=== PATIENT | male | born 2000 | race Caucasian/White ===

== ENCOUNTER 2018-08-05 14:10 | Emergency (ER) | payer OTHER, SELFPAY ==
[2018-08-05 14:11] VITALS: BP 108/61; PULSE 107; RESP 16; TEMP 36.8; O2SAT 98; BMI 19.8
--- NOTE | 2018-08-05 14:49 | ED.VISSUMM ---
- ER Visit Summary Date of Service: 08/05/18 Chief Complaint: [] Rhinorrhea and cough History of Present Illness: The patient is a 17 M [] she has had rhinorrhea and cough occasional nausea he is able to drink Gatorade solid foods make her more nauseated, no fever no chest or abdominal pain eating and drinking liquids and soft foods more difficult to swallow food normal bowel bladder habits no past history no exposures Physical Examination: [] Unremarkable he is afebrile clinically looks well in no distress working with his phone General, no distress resting comfortably HEENT is generally unremarkable, minimal rhinorrhea no distress airways intact The neck is supple no adenopathy Cardiovascular, regular rate and rhythm Lungs, clear bilateral Abdomen, soft nontender Extremities, no clubbing cyanosis or edema Neurologic, awake alert answering questions appropriately moving all 4 extremities Test Results: [] Emergency Department Course and Treatment: [] He looks well he is drinking Gatorade which he brought with him, there is no acute abnormality I explained he looks has a URI with a runny nose and occasional cough he appears well-hydrated he has no head neck chest or abdominal abnormalities on physical exam except as above he is comfortable discharge home with Giancarlo to stay on liquid frothy diet felt his doctors return for change in symptoms Treatment Plan: [] Disposition: [] Home stable Impression: [] URI with cough This note was generated with [employer] dictation software. It may contain incorrect words, spelling, and punctuation that were not noted in review of the chart prior to signing ED Disposition - Plan for ED Patient: Referrals: Roman Castle MD [Primary Care Provider] -
--- NOTE | 2018-08-05 14:53 | ED.DEP ---
ED Disposition - Plan for ED Patient: Instructions: ED Upper Resp Infec No Abx Tx Prescriptions: Ondansetron [Zofran Odt] 4 mg PO Q8H PRN PRN #10 tab PRN Reason: Nausea Referrals: Roman Castle MD [Primary Care Provider] -
== END 2018-08-05 15:04 | disposition home or self-care (01) ==
PROVIDERS: Emergency Provider Emergency Medicine; Family Provider Pediatrics; PCP Pediatrics
DX: J06.9 Acute upper respiratory infection, unspecified (principal); R05 Cough
CPT/HCPCS: 99282

== ENCOUNTER 2021-02-07 12:13 | Emergency (ER) | payer MEDICARE, SELFPAY ==
[2021-02-07 12:14] VITALS: BP 129/90; PULSE 111; RESP 16; TEMP 36; O2SAT 99; BMI 23.6
--- NOTE | 2021-02-07 12:29 | EX.ED.DYSGE1 ---
HPI History of Present Illness Chief Complaint: General Illness Narrative Narrative: Patient presents with cough congestion loss of smell and some muscle aches for the past 3 days. He did get his first dose of Covid vaccine 2 weeks ago. He is complaining of subjective fevers this morning but no prior fevers. He has no shortness of breath. He is denying urinary symptoms neck pain or neck stiffness no headache. PFSH PFSH Home Medications cephalexin 500 mg PO Q6 #40 capsule 01/21/17 [Rx Last Taken Unknown] ondansetron 4 mg PO Q8H PRN PRN #10 tab 08/05/18 [Rx Last Taken Unknown] Allergy/AdvReac Type Severity Reaction Status Date / Time No Known Allergies Allergy Verified 02/07/21 12:16 Social History Smoking Status: Current every day smoker ROS ROS ED ROS Narrative Past medical history: Reviewed, noncontributory Medications: Reviewed Social history: Noncontributory Review of systems: All systems negative except as indicated General: No fever Eyes: No visual changes ENT: Upper airway congestion and rhinorrhea. Loss of smell some loss of taste Neck: No neck pain Cardiovascular: No chest pain Respiratory: No shortness of breath or cough Gastrointestinal: No abdominal pain, nausea vomiting or diarrhea Genitourinary: No dysuria Musculoskeletal: Some myalgias Skin: No rash Neurological: No memory loss, confusion or any focal weakness Psych: No recent behavioral changes Hematologic: No easy bleeding or easy bruising EXAM Physical Exam Narrative Exam Narrative: Physical exam General: Well nourished, Well developed, No Acute Distress Head: Normocephalic, Atraumatic Eyes: Conjunctiva not pale ENT: He has rhinorrhea and swollen nasal turbinates. He has some postnasal drip but no pharyngitis. Otherwise normal soft palate. Moist membranes without evidence of dehydration Neck: Supple, Nontender, No lymphadenopathy Cardiovascular: Slightly tachycardic. No murmur. Respiratory: No distress, CTA bilaterally Abdomen: Soft, Nontender, Nondistended Back: Nontender, Normal Inspection. Negative for: CVA tenderness Extremities: Nontender, No edema Skin: Normal color, No rash Neurological: Alert, Normal Strength, Normal Sensation Psychological: Normal affect Const Vital Signs: 02/07/21 12:14 Temperature 96.8 F L Temperature Source Temporal Pulse Rate 111 H Respiratory Rate 16 Blood Pressure 129/90 H Blood Pressure Mean 103 Pulse Ox 99 Oxygen Delivery Method Room Air MDM MDM MDM Narrative Medical decision making narrative: Patient appears well, I will test him for Covid otherwise he has a viral upper respiratory infection. I will write him off work for the next 2 days I did tell him it is longer if his Covid come back positive. Per hospital protocol we will text him the test results. Discharge Plan Triage Chief Complaint: General Illness ED Provider: Pedro Hurtado Dx/Rx/DC Orders Clinical Impression: Upper respiratory infection Instructions: ED URI, Viral, No Abx (Adult) Prescriptions: No Action cephalexin 500 MG capsule 500 mg PO Q6 Qty: 40 RF: 0 ondansetron 4 MG tablet 4 mg PO Q8H PRN PRN (Reason: Nausea) Qty: 10 RF: 0 Primary Care Provider: Roman Castle Referrals: Roman Castle MD [Primary Care Provider] - 2 Days Disposition Disposition: Home, Self Care
[2021-02-07 12:36] VITALS: BP 129/90; PULSE 111; RESP 16; TEMP 36; O2SAT 99
== END 2021-02-07 12:38 | disposition home or self-care (01) ==
LOC: ED 12:33
PROVIDERS: Emergency Provider Emergency Medicine; PCP Pediatrics
DX: U07.1 COVID-19 (principal); J06.9 Acute upper respiratory infection, unspecified; F17.200 Nicotine dependence, unspecified, uncomplicated
CPT/HCPCS: 87426; 99282

== ENCOUNTER 2022-06-07 23:58 | Emergency (ER) | payer BC, MEDICAID, SELFPAY ==
[2022-06-07 23:59] VITALS: BP 131/88; PULSE 61; RESP 16; TEMP 36.6; O2SAT 100; BMI 21.6
--- NOTE | 2022-06-08 00:13 | EX.ED.DYSGE1 ---
HPI History of Present Illness Chief Complaint: Cellulitis Informant: patient Onset/Context/Timing Onset: Weeks (1 week) Narrative Narrative: Patient presents secondary to infection in his right great toe. He had an ingrown toenail that he is already trimmed the nail back. He states he continues to have pain and drainage. Symptoms started about a week ago. No fever or chills. He is not diabetic. PFSH PFSH Medical History no medical history no medical history Home Medications cephalexin 500 mg capsule 500 mg PO Q6 ##40 01/21/17 [Rx Last Taken Unknown] ondansetron 4 mg disintegrating tablet 4 mg PO Q8H PRN PRN Nausea #10 tabs 08/05/18 [Rx Last Taken Unknown] cephalexin 500 mg capsule 500 mg PO Q6 #40 CAPSULES 06/08/22 [Rx Last Taken Unknown] sulfamethoxazole 800 mg-trimethoprim 160 mg tablet (Bactrim DS) 1 tab PO BID #20 tabs 06/08/22 [Rx Last Taken Unknown] Allergy/AdvReac Type Severity Reaction Status Date / Time No Known Allergies Allergy Verified 06/08/22 00:00 Social History Smoking Status: Current every day smoker tobacco type: cigarettes ROS ROS ED Constitutional Constitutional ED: Denies chills or fever(s) Eyes Eyes: Denies change in vision or discharge from eye(s) ENT ENT ED: Denies discharge from eye(s), rhinorrhea or sore throat Cardiovascular Cardiovascular: Denies chest pain or palpitations Respiratory/Chest Respiratory/Chest: Denies cough or dyspnea Gastrointestinal Gastrointestinal: Denies abdominal pain, diarrhea, nausea or vomiting Genitourinary Genitourinary ED: Denies difficulty urinating or dysuria Musculoskeletal Musculoskeletal: Reports extremity pain; Denies back pain Integumentary Denies Abrasions or rash Neurologic Neurologic: Denies headache(s) or weakness Psychiatric Psychiatric: Denies anxiety or depression Allergic/Immunologic Allergic/Immunologic ED: Denies lip swelling or urticaria EXAM Physical Exam Const Vital Signs: 06/07/22 23:59 Temperature 98 F Temperature Source Temporal Pulse Rate 61 Respiratory Rate 16 Blood Pressure 131/88 H Blood Pressure Mean 102 Pulse Ox 100 Oxygen Delivery Method Room Air Positive well nourished and well developed General Appearance ED: well developed HEENT Reports normocephalic and head/scalp atraumatic Eyes PERRL and EOMs intact bilaterally Neck supple Chest Wall inspection of chest normal and palpation of chest normal Resp normal respiratory effort and clear to auscultation bilaterally Cardio regular rate and regular rhythm GI Palpation: soft Back/Spine no CVA tenderness Extremity Extremity Narrative: Right great toe: Nail is already trimmed out from the medial aspect of the right great toe. There is a mild amount of edema with some dried blood. No significant cellulitis or lymphangitic streaking. No fluctuance or sign of abscess. Neuro oriented x3 and no sensory deficits noted Sensorium / Orientation: alert Motor Exam: strength 5/5 throughout Psych mental status grossly normal MDM MDM MDM Narrative Medical decision making narrative: Wound to be cleansed and dressed. Patient be treated with Bactrim and Keflex, first dose is given here. Return instructions given. Discharge Plan Triage Chief Complaint: Cellulitis ED Provider: Marce Arcos Dx/Rx/DC Orders Clinical Impression: Ingrowing toenail with infection Instructions: ED Toenail Ingrown Infec Abx Onl Prescriptions: New sulfamethoxazole-trimethoprim [Bactrim DS] 800-160 mg tablet 1 tab PO BID Qty: 20 0RF cephalexin 500 mg capsule 500 mg PO Q6 Qty: 40 0RF No Action cephalexin 500 MG capsule 500 mg PO Q6 Qty: 40 0RF ondansetron 4 MG tablet 4 mg PO Q8H PRN PRN (Reason: Nausea) Qty: 10 0RF Primary Care Provider: Roman Castle Referrals: Yogesh Olguin DPM [Med Staff - Active Staff] - As Needed Roman Castle MD [Primary Care Provider] - Disposition Disposition: Home, Self Care
[2022-06-08] MEDS: Smz/Tmp Ds Tablet 1 TABLET PO (00:29)
[2022-06-08] MEDS: Cephalexin 250 MG Capsule 500 MG PO (00:29)
== END 2022-06-08 00:33 | disposition home or self-care (01) ==
LOC: ED 06-08 00:28
PROVIDERS: Emergency Provider Emergency Medicine; PCP Pediatrics; Referring Provider Emergency Medicine; Visit Provider Emergency Medicine
DX: L60.0 Ingrowing nail (principal); L08.9 Local infection of the skin and subcutaneous tissue, unspecified; F17.210 Nicotine dependence, cigarettes, uncomplicated; Z79.899 Other long term (current) drug therapy
CPT/HCPCS: 99283

== ENCOUNTER 2023-01-01 15:54 | Emergency (ER) | payer SELFPAY ==
[2023-01-01 15:55] VITALS: BP 110/73; PULSE 88; RESP 18; TEMP 36.4; O2SAT 100; BMI 19.8
--- NOTE | 2023-01-01 16:06 | CT_ITS ---
EXAM: CT brain without contrast HISTORY: Pain TECHNIQUE: No intravenous contrast. A radiation dose optimization technique was used for this scan. COMPARISON: None. LIMITATIONS: None. BRAIN: Normal russell/white matter differentiation. VENTRICLES: No hydrocephalus. EXTRA-AXIAL SPACES: No acute hemorrhage. CALVARIUM/SKULL BASE: No acute fracture. FACE/SINUSES: No significant abnormality. SOFT TISSUES: Normal. OTHER: None. CONCLUSION: No acute intracranial abnormality. Electronically Signed: Sukhjinder Cowart MD at 16:54 EDT , CT/Brain/Head without Contrast IMPRESSION: undefined
--- NOTE | 2023-01-01 16:25 | ED.RN ---
PT INFORMED THAT BECAUSE HE IS GETTING BENADRYL HE WILL NEED A RIDE HOME. PT STATES THAT HE IS CALLING DAD.
[2023-01-01] MEDS: Metoclopramide 10 MG/2 ML Vial IV (16:28)
[2023-01-01] MEDS: 0.9% Normal Saline (1000mL) 1,000 ML 999 ML IV (16:29)
--- NOTE | 2023-01-01 16:55 | ED.RN ---
WENT IN WITH [facility] TO SEE IF PT HAD FOUND A RIDE, PT HAD PULLED IV OUT WITH BLOOD AND SALINE ALL OVER THE BED AND FLOOR AND STATED HE WAS LEAVING.
--- NOTE | 2023-01-01 16:59 | EDS_ITS ---
HPI History of Present Illness Chief Complaint: Headache Narrative Narrative: 22-year-old male with history of migraine headaches presenting with headache. He states he had it for a couple of days. He states it typically does not last more than a day he does not usually have to be treated for it. He states this has been a long-term thing since he was a child. He states he is never had an image of his brain however. No fevers. Patient does work to go [employer] and was concerned that maybe the chemicals in the place were making him have a headache. No dizziness, lightheadedness. No numbness or tingling/paresthesias. Patient walking with stable gait. No visual complaints. He does complain of light and sound sensitivity. PFSH PFSH Home Medications cephalexin 500 mg capsule 500 mg PO Q6 ##40 01/21/17 [Rx Last Taken Unknown] ondansetron 4 mg disintegrating tablet 4 mg PO Q8H PRN PRN Nausea #10 tabs 08/05/18 [Rx Last Taken Unknown] cephalexin 500 mg capsule 500 mg PO Q6 #40 CAPSULES 06/08/22 [Rx Last Taken Unknown] sulfamethoxazole 800 mg-trimethoprim 160 mg tablet (Bactrim DS) 1 tab PO BID #20 tabs 06/08/22 [Rx Last Taken Unknown] Allergy/AdvReac Type Severity Reaction Status Date / Time No Known Allergies Allergy Verified 06/08/22 00:00 Social History Smoking Status: Current every day smoker tobacco type: cigarettes and e- cigarettes ROS ROS ED Constitutional Constitutional ED: Denies chills, fever(s) or sweats Eyes Eyes: Denies blurry vision or change in vision ENT ENT ED: Denies ear pain or sore throat Cardiovascular Cardiovascular: Denies chest pain, palpitations or racing heartbeat Respiratory/Chest Respiratory/Chest: Denies cough, dyspnea or sputum Gastrointestinal Gastrointestinal: Denies abdominal pain, constipation, diarrhea, nausea or vomiting Genitourinary Genitourinary ED: Denies dysuria, hematuria or urinary frequency Musculoskeletal Musculoskeletal: Denies arthralgias, myalgias or neck pain Integumentary Denies abscess, Abrasions or rash Neurologic Neurologic: Reports headache(s); Denies paresthesias or weakness Psychiatric Psychiatric: Denies anxiety, depression, suicidal ideation or suicidal thoughts Endocrine Endocrinology: Denies polydipsia or polyuria EXAM Physical Exam Const Vital Signs: 01/01/23 15:55 Temperature 97.6 F L Temperature Source Temporal Pulse Rate 88 Respiratory Rate 18 Blood Pressure 110/73 Blood Pressure Mean 85 Pulse Ox 100 Oxygen Delivery Method Room Air Positive well nourished General Appearance ED: NAD; Negative for pallor HEENT Reports normocephalic atraumatic Eyes PERRL and EOMs intact bilaterally Resp normal respiratory effort Cardio regular rate and regular rhythm Extremity normal to inspection and full ROM Neuro oriented x3, CN's II-XII intact bilaterally and no sensory deficits noted Neuro Narrative: No focal neurologic deficits or lateralizing signs or symptoms. Sensorium / Orientation: awake and alert Motor Exam: strength 5/5 throughout Psych mental status grossly normal Skin General Skin Exam: Negative for jaundice or pallor MDM MDM MDM Narrative Medical decision making narrative: 22-year-old male present with headache and has had for few days. He is never had imaging of his head but states he had migraines. I will see any record of this in the system. Differential includes stress headache, migraine headache, intracranial hemorrhage, mass. I ordered Reglan and Benadryl for the patient. I will obtain a CT brain as he has never had one. CT brain ultimately read as negative by the radiologist. I did review CT myself and I will see the acute. patient was medicated with Reglan and per nursing was told that he would have to get a ride if he received Benadryl and that point he ripped out his IV and walked out of the emergency room. He did not have his CT reviewed with him. It is unclear whether his headache was better. Impression: 1. Headache 2. Elopement Radiography Diagnostic Testing: Clinical Impression(s) from Imaging Studies Brain CT 01/01/23 16:06 IMPRESSION: undefined Discharge Plan Triage Chief Complaint: Headache ED Provider: Campbell Suggs Dx/Rx/DC Orders Prescriptions: No Action cephalexin 500 MG capsule 500 mg PO Q6 Qty: 40 0RF ondansetron 4 MG tablet 4 mg PO Q8H PRN PRN (Reason: Nausea) Qty: 10 0RF sulfamethoxazole-trimethoprim [Bactrim DS] 800-160 mg tablet 1 tab PO BID Qty: 20 0RF cephalexin 500 mg capsule 500 mg PO Q6 Qty: 40 0RF Primary Care Provider: Roman Castle Referrals: Roman Castle MD [Primary Care Provider] -
== END 2023-01-01 17:06 | disposition left against medical advice (07) ==
PROVIDERS: Emergency Provider Student in an Organized Health Care Education/Training Program; PCP Pediatrics; Visit Provider Student in an Organized Health Care Education/Training Program
DX: R51.9 Headache, unspecified (principal); F17.210 Nicotine dependence, cigarettes, uncomplicated; F17.290 Nicotine dependence, other tobacco product, uncomplicated
CPT/HCPCS: 70450; 96361; 96374; 96375; 99283; J7030

== ENCOUNTER 2024-04-07 01:06 | Emergency (ER) | payer SELFPAY ==
[2024-04-07 01:07] VITALS: BP 133/93; PULSE 100; RESP 18; TEMP 36.8; O2SAT 100; BMI 23.8
--- NOTE | 2024-04-07 01:19 | EDS_ITS ---
HPI History of Present Illness Chief Complaint: Dental Informant: patient Narrative Narrative: Left mandibular dental pain for couple days, followed by swelling that started mostly today and has progressed. No fevers, chills, discharge or bleeding. PFSH PFSH Medical History no medical history Home Medications ?Medication ?Instructions ?Recorded ?Last Taken ?Type ondansetron 4 mg disintegrating 4 mg PO Q8H PRN PRN Nausea #10 tabs 08/05/18 Unknown Rx tablet amoxicillin 500 mg tablet 500 mg PO TID #30 tabs 04/07/24 Unknown Rx Allergy/AdvReac Type Severity Reaction Status Date / Time No Known Allergies Allergy Verified 06/08/22 00:00 Surgical History no surgical history Social History Smoking Status: Current every day smoker tobacco type: e-cigarettes ROS ROS ED Constitutional Constitutional ED: Denies chills or fever(s) Eyes Eyes: Denies change in vision or double vision ENT ENT ED: Reports as per HPI and dental pain; Denies sinus pain or throat swelling Cardiovascular Cardiovascular: Denies chest pain or palpitations Respiratory/Chest Respiratory/Chest: Denies cough or dyspnea Integumentary Denies abscess or rash Neurologic Neurologic: Denies headache(s), paresthesias or weakness EXAM Physical Exam Const Vital Signs: 04/07/24 01:07 Temperature 98.2 F Temperature Source Oral Pulse Rate 100 Respiratory Rate 18 Blood Pressure 133/93 H Blood Pressure Mean 106 Pulse Ox 100 Positive well nourished and well developed General Appearance ED: well developed and NAD HEENT HEENT Narrative: Obvious external asymmetry with swelling left mandibular body area. There is no trismus. Intraorally, he appears to have a dental abscess next to tooth #19 or 20. It is pointing on the dental mucosa there is no spontaneous purulent discharge or bleeding or evidence of gingivitis. There is poor dentition present with decay down to the gumline at the affected tooth. No tongue elevation. Floor the mouth soft nondistended. Normal voice. Face and Sinus: sinuses nontender Throat: posterior oropharynx normal Eyes PERRL and EOMs intact bilaterally Neck no lymphadenopathy and supple Resp normal respiratory effort Neuro oriented x3 and CN's II-XII intact bilaterally Sensorium / Orientation: alert Gait (Neuro): normal gait Psych mental status grossly normal and thought process normal Skin no rashes or lesions noted and no wounds MDM MDM MDM Narrative Medical decision making narrative: Patient amenable to abscess aspiration see the procedure note which was successful. Patient tolerated well. Started on amoxicillin advised to follow- up with dentistry, given a resource list. Procedures Other Procedures Procedure(s): Dental abscess aspiration: After verbal consent from the patient and topical intraoral anesthesia with a 3-second spray of Cetacaine, a 21-gauge needle was placed through the oral mucosa into the abscess, I gently massage the abscess externally and was able to aspirate 2 cc of purulent pus. The patient then was able to swish and spit some more pus out. Tolerated well no complications. Discharge Plan Triage Chief Complaint: Dental ED Provider: Andreas Mahan Dx/Rx/DC Orders Clinical Impression: Dental abscess Instructions: ED Dental Abscess Prescriptions: New amoxicillin 500 mg tablet 500 mg PO TID Qty: 30 0RF Discontinued cephalexin 500 MG capsule 500 mg PO Q6 Qty: 40 0RF sulfamethoxazole-trimethoprim [Bactrim DS] 800-160 mg tablet 1 tab PO BID Qty: 20 0RF cephalexin 500 mg capsule 500 mg PO Q6 Qty: 40 0RF No Action ondansetron 4 MG tablet 4 mg PO Q8H PRN PRN (Reason: Nausea) Qty: 10 0RF Primary Care Provider: Care Physician,No Primary Referrals: Roman Castle MD [Non-Staff -Ordering Privileges] - Dentist,Your [STAFF PHYSICIAN] - As soon as possible Print Language: Vietnamese Disposition Disposition: Home, Self Care
[2024-04-07] MEDS: Naproxen 500 MG Tablet PO (01:25)
[2024-04-07] MEDS: AMOXICILLIN 500 MG CAPSULE PO (01:25)
[2024-04-07] MEDS: Tetracaine/Benzocaine/Butamben 1 APPLIC TOPICAL (01:25)
[2024-04-07 01:42] VITALS: BP 133/93; PULSE 98; RESP 18; TEMP 36.8; O2SAT 100
== END 2024-04-07 01:48 | disposition home or self-care (01) ==
LOC: ED 01:31
PROVIDERS: Emergency Provider Emergency Medicine; Visit Provider Emergency Medicine
DX: K04.7 Periapical abscess without sinus (principal)
CPT/HCPCS: 10160; 64999; 99283